=== PATIENT | male | born 1990 | race Caucasian/White ===

== ENCOUNTER 2019-04-03 19:08 | Emergency (ER) | payer SELFPAY ==
[~2019-04-03] VITALS: Ht 175.3 cm; Wt 66.4 kg
[2019-04-03 19:34] VITALS: Ht 175.3 cm; Wt 66.4 kg
[2019-04-03] MEDS ORDERED: KEFLEX500 MG PO (21:15)
[2019-04-03] MEDS ORDERED: TORADOL10 MG PO (21:15)
[2019-04-03 21:48] VITALS: BP 105/43
== END 2019-04-03 21:48 | disposition home or self-care (01) ==
LOC: D.ER 19:08
DX: S50.11XA Contusion of right forearm, initial encounter (principal); S51.831A Puncture wound without foreign body of right forearm, initial encounter; W45.0XXA Nail entering through skin, initial encounter; Y93.89 Activity, other specified; Y92.89 Other specified places as the place of occurrence of the external cause